=== PATIENT | male | born 1945 | race Caucasian/White ===

== ENCOUNTER → 2016-03-11 | Outpatient (CLI) | payer OTHER ==
--- NOTE | 2016-03-11 16:26 | DX ---
Chest, PA and Lateral History: COPD, R06.00, J44.9 Findings: Lungs are clear, without infiltrate or consolidation. Heart size is normal. There is no tommie nopathy or mass lesion. There is no pleural effusion. . Moderate elevation of the right hemidiaphragm may be related to underlying hepatomegaly. Bones are unremarkable for age. Low cervical fusion hardw are is present. Impression: Right diaphragm elevation of undetermined etiology. If there are any old outside x-rays, we would be happy to review them. If there is concern for diaphragmatic paralysis, then consider maria isabel parkinson chest fluoroscopy to perform a "sniff test".
== END ==
LOC: CIMAGING 16:08
PROVIDERS: ATTEND Internal Medicine Pulmonary Disease
DX: R06.00 Dyspnea, unspecified (principal)
CPT/HCPCS: 71020-PO

== ENCOUNTER → 2016-04-08 | Outpatient (CLI) | payer OTHER | LOC: FIMAGING 13:06 | PROVIDERS: ATTEND Internal Medicine Pulmonary Disease | DX: J98.6 Disorders of diaphragm (principal); Z85.72 Personal history of non-Hodgkin lymphomas ==